=== PATIENT | female | born 1955 | race African-American/Black ===

== ENCOUNTER 2016-09-18 19:55 | Emergency (ER) | payer MEDICAID, OTHER ==
[~2016-09-18] VITALS: Ht 160 cm; Wt 68.0 kg
[2016-09-18 19:55] VITALS: BP 117/72
[~2016-09-18 19:55] MED LIST: GABAPENTIN600 MG ORAL
--- NOTE | 2016-09-18 21:16 | Emergency Room Report ---
History of Present Illness General Chief Complaint: Laceration Source: Patient Present Illness HPI 60-year-old female presents emergency department complaining of sustained laceration to the right great toe times one day. Patient states she is paraplegic, and was using a new electric wheelchair and in the process she scraped her right great toe along the wall and sustained laceration. Patient denies pain at this time patient reports mild bleeding which she believes has subsided. Tetanus unknown. Patient denies history of diabetes or immunocompromise, denies bony tenderness. She denies any blood thinning medications. Denies CP, Palpitations, LOC, AMS, dizziness, Changes in Vision, Sensation, new paresthesias, or a sudden severe headache. Allergies: Coded Allergies: No Known Allergies (Unverified , 09/18/16) Patient History Past Medical History: see triage record Past Surgical History: none Pertinent Family History: none Last Menstrual Period: n/a Now: No Reviewed Nursing Documentation: PMH: Agreed, PSxH: Agreed Nursing Documentation-PMH Past Medical History: No History, Except For Review of Systems All Other Systems: negative except mentioned in HPI Physical Exam Vital Signs Date Time Temp Pulse Resp B/P Pulse Ox O2 Delivery O2 Flow Rate FiO2 09/18/16 19:49 98.2 88 14 117/72 97 Room Air Sp02 EP Interpretation: reviewed, normal General Appearance: no apparent distress, alert, GCS 15, non-toxic Head: normocephalic, atraumatic Eyes: bilateral eye PERRL, bilateral eye normal inspection ENT: hearing grossly normal, normal pharynx, no angioedema, normal voice Neck: full range of motion, supple/symm/no masses Respiratory: chest non-tender, lungs clear, normal breath sounds, speaking full sentences Cardiovascular #1: regular rate, rhythm, no edema Rectal: deferred Genitourinary: normal inspection, no CVA tenderness Musculoskeletal: back normal, normal range of motion, non-tender Neurologic: alert, oriented x3, responsive, motor strength/tone normal, sensory intact, speech normal Psychiatric: judgement/insight normal, memory normal, mood/affect normal Skin: normal color, no rash, warm/dry, well hydrated, laceration - skin tear to the right great toe approximately 2 cm in diameter. remaining flap of skin is minimally attached, and is very dry. Lymphatic: no adenopathy Medical Decision Making PA Attestation Dr. Pierre is my supervising Physician whom patient management has been discussed with. Diagnostic Impression: Primary Impression: Skin tear of right lower leg without complication Qualified Codes: S81.811A - Laceration without foreign body, right lower leg, initial encounter ER Course 60-year-old female presents emergency department complaining of sustained laceration to the right great toe times one day. Patient states she is paraplegic, and was using a new electric wheelchair and in the process she scraped her right great toe along the wall and sustained laceration. Patient denies pain at this time patient reports mild bleeding which she believes has subsided. Patient denies history of diabetes or immunocompromise, denies bony tenderness. She denies any blood thinning medications. Denies CP, Palpitations , LOC, AMS, dizziness, Changes in Vision, Sensation, new paresthesias, or a sudden severe headache. Ddx considered but are not limited to laceration, tendon injury, cellulitis, amputation Vital signs: are WNL, pt. is afebrile H&PE are most consistent with: skin tear to the right great toe approximately 2 cm in diameter. ORDERS: none required at this time, the diagnosis is clinical ED INTERVENTIONS: -Tetanus vaccine was administered as pt. vaccination status was unknown. - The wound was copiously irrigated with normal saline, and explored for foreign body for which no FB was found. - the excess flap of skin was debrided as it was thing, had small area of attachment, and was dry - likely menon of skin taking was very low. -- the wound is not closed and will heal by secondary intent. -Bacitracin and sterile dressing is applied. Discussed with patient: That we make every effort to approximate the laceration as best as we can so that scarring will be as cosmetically pleasing as possible with our limited cosmetic skill set in the Emergency dept. Regardless of our best efforts there will be scarring after laceration repair. The extent of scarring is unknown at this time. DISCHARGE: At this time pt. is stable for d/c to home. Will provide printed patient care instructions, and any necessary prescriptions. Care plan and follow up instructions have been discussed with the patient prior to discharge. Last Vital Signs Date Time Temp Pulse Resp B/P Pulse Ox O2 Delivery O2 Flow Rate FiO2 09/18/16 19:55 98.2 88 14 117/72 97 Room Air Disposition: HOME, SELF-CARE Condition: Stable Scripts Bacitracin/Polymyxin B Sulfate (BACITRACIN-POLYMYXIN OINTMENT) 28.35 Gm Oint...g. 1 APPLIC TP BID, #28.3 GM Prov: Nita Renner 09/18/16 Cephalexin* (KEFLEX*) 500 Mg Capsule 500 MG ORAL EVERY 12 HOURS for 7 Days, #14 CAP 0 Refills Prov: Nita Renner 09/18/16 Patient Instructions: Nonsutured Laceration Care Additional Instructions: Take medications as directed. Follow up with PCP in 3-5 days Return sooner to ED if new symptoms occur, or current symptoms become worse. - Please note that this Emergency Department Report was dictated using [employer] inspector technology software, occasionally this can lead to erroneous entry secondary to interpretation by the dictation equipment. Nita Renner Sep 18, 2016 21:16
[2016-09-18] MEDS ORDERED: TdaP Vaccine 0.5ml Syr IM ONE (21:30)
[2016-09-18] MEDS ORDERED: BACITRACIN-P28.35 GM TP (21:32)
[2016-09-18] MEDS ORDERED: CEPHALEXIN500 MG ORAL (21:32)
[2016-09-18] MEDS ORDERED: Hydrogen Peroxide 473ml Bottle TOPIC ONE ×2 (21:33→21:45)
[2016-09-18] MEDS ORDERED: Bacitracin Oint UD TOPIC ONE (21:54)
[2016-09-18 21:55] VITALS: BP 128/78
[2016-09-18 23:55] VITALS: BP 119/80
[2016-09-19 00:45] VITALS: BP 135/79
== END 2016-09-19 00:45 | disposition home or self-care (01) ==
LOC: EDBD 19:55 → EMR 22:35
DX: S91.111A Laceration without foreign body of right great toe without damage to nail, initial encounter (principal); W45.8XXA Other foreign body or object entering through skin, initial encounter; Y92.89 Other specified places as the place of occurrence of the external cause; Z23 Encounter for immunization; G82.20 Paraplegia, unspecified; Z99.3 Dependence on wheelchair
CPT/HCPCS: 90471; 90715; 96372; 99284